=== PATIENT | female | born 1985 | race Caucasian/White ===

== ENCOUNTER 2017-12-31 14:31 | Emergency (ER) | payer BC ==
[2017-12-31] MEDS ORDERED: Sodium Chloride 0.9% 1,000 ML IV ONE (14:52)
[2017-12-31] MEDS ORDERED: Ketorolac 30 MG/ML SDV IVPUSH ONE (14:52)
[2017-12-31] MEDS ORDERED: Ondansetron 4 MG/2 ML SDV IVPUSH ONE (14:52)
[2017-12-31] MEDS ORDERED: Alum Hydrox/Mag Hydrox/Simeth 15 ML, Metoclopramide 5 MG, Lidocaine 2% 5 ML PO ONE ×3 (14:52)
--- NOTE | 2017-12-31 15:05 | EDM.PDOC ---
ED HPI GENERAL MEDICAL PROBLEM - General Chief Complaint: Abdominal Pain Stated Complaint: ABD AND BACK PAIN Time Seen by Provider: 12/31/17 14:34 Source of Information: Reports: Patient History Limitations: Reports: No Limitations - History of Present Illness INITIAL COMMENTS - FREE TEXT/NARRATIVE: HISTORY AND PHYSICAL: History of present illness: Patient is a 32-year-old who presents to the emergency room with complaints of epigastric and back pain 1 week. She reports she was seen at [facility] last week, had a "normal urine" but was treated with a three day course of antibiotics anyway. Her pain continues and has progressively increased. She returned to [facility] and was placed on multiple medications; which have not seemed to help. She does have associated nausea and vomiting. She denies any fever, chills, chest pain, shortness of breath or cough. Denies any diarrhea, constipation or dysuria. No blood noted in urine or stools. Review of systems: As per history of present illness and below otherwise all systems reviewed and negative. Past medical history: As per history of present illness and as reviewed below otherwise noncontributory. Surgical history: As per history of present illness and as reviewed below otherwise noncontributory. Social history: No reported history of drug or alcohol abuse. Family history: As per history of present illness and as reviewed below otherwise noncontributory. Physical exam: General: Well-developed and well-nourished 32-year-old female. Alert and oriented. Nontoxic appearing and in no acute distress. HEENT: Atraumatic, normocephalic, pupils equal and reactive bilaterally, negative for conjunctival pallor or scleral icterus, mucous membranes moist, throat clear, neck supple, nontender, trachea midline. No drooling or trismus noted. No meningeal signs Lungs: Clear to auscultation, breath sounds equal bilaterally, chest nontender. Heart: S1S2, regular rate and rhythm without overt murmur Abdomen: Soft, nondistended, epigastrum tender. Negative for masses or hepatosplenomegaly. Negative for costovertebral tenderness. Pelvis: Stable nontender. Genitourinary: Deferred. Rectal: Deferred. Skin: Intact, warm, dry. No lesions or rashes noted. Extremities: Atraumatic, negative for cords or calf pain. Neurovascular unremarkable. Neuro: Awake, alert, oriented. Cranial nerves II through XII unremarkable. Cerebellum unremarkable. Motor and sensory unremarkable throughout. Exam nonfocal. Notes: The location she was placed on appears like they were treating an H. pylori infection. Patient states she is unaware if that's what she was diagnosed with. [facility] was called by nursing staff to obtain medical records. According to the records that were obtained from [facility], they were treating her prophylactically for an H. pylori infection due to her complaints and a WBC of 13.2. The H. pylori is a send out lab for that facility and they did not have results back at that time. Patient has a white count of 18.3. Elevated AST/ALT. H. pylori is negative. CT of the abdomen and pelvis along with a few additonal labs are pending. Pain is 7/10. Will give morphine, she is able to get a ride if needed. 1715: CT shows severe distention of the gallbladder with moderate wall thickening and a small amount of surrounding pericholecystic fluid and edema. Findings likely correlate with acute cholecystitis. There is a moderate intra- and extrahepatic biliary ductal dilation noted. Dr Hanna was consulted on this case, she will come evaluate patient. 1735: Cyndi here to review patients CT and chart. Cyndi requests that this patient needs to be transferred. Dr Shetty and Dr Villa at [facility] were consulted on this case. Agreeable to accepting this patient. Cipro and Flagyl running. Patient is aware of all testing results. She is agreeable to transfer to [place] in [place]. Vital signs are stable. Pain is managed at this time. Denies any further questions or concerns at this time. We'll continue to monitor until EMS crew arrived. Diagnostics: CBC, CMP, UA, HCGU, Amylase, Lipase, H.Pylori Therapeutics: IV fluids, Toradol, Zofran, GI cocktail, Morphine, IV Cipro and Flagyl Impression: Acute Cholecystitis Plan: Transfer to [facility] via ground EMS Definitive disposition and diagnosis as appropriate pending reevaluation and review of above. abdomen Pain Score (Numeric/FACES): 10 - Related Data Allergies Allergy/AdvReac Type Severity Reaction Status Date / Time Penicillins Allergy Cannot Verified 12/31/17 14:40 Remember Home Meds: Home Meds Clarithromycin 500 mg PO BID 12/31/17 [History] Pantoprazole [ProTONIX] 40 mg PO BID 12/31/17 [History] Sucralfate 1 gm PO QID 12/31/17 [History] metroNIDAZOLE [Flagyl] 500 mg PO TID 12/31/17 [History] Past Medical History - Past Surgical History Female Surgical History: Reports: Section Social & Family History - Family History Family Medical History: Noncontributory - Tobacco Use Smoking Status *Q: Never Smoker - Recreational Drug Use Recreational Drug Use: No ED ROS GENERAL - Review of Systems Review Of Systems: ROS reveals no pertinent complaints other than HPI. ED EXAM, GI/ABD - Physical Exam Exam: See Below (See dictation) Course - Vital Signs Last Recorded V/S: Last Vital Signs Temp 98.9 F 12/31/17 16:58 Pulse 70 12/31/17 16:58 Resp 20 12/31/17 14:42 BP 149/90 H 12/31/17 16:58 Pulse Ox 98 12/31/17 16:58 - Orders/Labs/Meds Orders: Active Orders 24 hr Category Date Time Status Abdomen Pelvis w Cont [CT] Stat Exams 12/31/17 14:57 Taken HCG QUALITATIVE,URINE [URCHEM] Stat Lab 12/31/17 16:19 Ordered UA W/MICROSCOPIC [URIN] Stat Lab 12/31/17 16:19 Ordered Ciprofloxacin in D5W [Cipro in D5W 400 MG/200 ML] 400 Med 12/31/17 17:30 Ordered mg Premix Bag 1 bag IV Q12H metroNIDAZOLE/Normal Saline [Flagyl 500 MG in NS 100 ML Med 12/31/17 17:30 Ordered ] 500 mg Premix Bag 1 bag IV ONETIME Medication Orders Ciprofloxacin/Dextrose 400 mg/ (Premix) 200 mls @ 200 mls/hr IV Q12H TAMIA Last Admin: 12/31/17 17:45 Dose: 200 mls/hr Metronidazole 500 mg/ Premix 100 mls @ 100 mls/hr IV ONETIME ONE Stop: 12/31/17 18:29 Last Admin: 12/31/17 17:41 Dose: 100 mls/hr Labs: Laboratory Tests 12/31/17 12/31/17 12/31/17 Range/Units 14:59 14:59 14:59 WBC 18.20 H (4.0-11.0) K/uL RBC 5.17 (4.30-5.90) M/uL Hgb 15.6 (12.0-16.0) g/dL Hct 44.3 (36.0-46.0) % MCV 85.7 (80.0-98.0) fL MCH 30.2 (27.0-32.0) pg MCHC 35.2 (31.0-37.0) g/dL RDW Std Deviation 40.6 (28.0-62.0) fl RDW Coeff of Abi 13 (11.0-15.0) % Plt Count 235 (150-400) K/uL MPV 10.60 (7.40-12.00) fL Neut % (Auto) 87.6 H (48.0-80.0) % Lymph % (Auto) 4.7 L (16.0-40.0) % [place] % (Auto) 7.5 (0.0-15.0) % Eos % (Auto) 0.1 (0.0-7.0) % Baso % (Auto) 0.1 (0.0-1.5) % Neut # (Auto) 16.0 H (1.4-5.7) K/uL Lymph # (Auto) 0.9 (0.6-2.4) K/uL [place] # (Auto) 1.4 H (0.0-0.8) K/uL Eos # (Auto) 0.0 (0.0-0.7) K/uL Baso # (Auto) 0.0 (0.0-0.1) K/uL Nucleated RBC % 0.0 /100WBC Nucleated RBCs # 0 K/uL Sodium 135 L (136-145) mmol/L Potassium 3.8 (3.5-5.1) mmol/L Chloride 99 (98-107) mmol/L Carbon Dioxide 22.8 (21.0-32.0) mmol/L BUN 12 (7.0-18.0) mg/dL Creatinine 0.8 (0.6-1.0) mg/dL Est Cr Clr Drug Dosing 88.79 mL/min Estimated GFR (MDRD) > 60.0 ml/min Glucose 149 H (74-106) mg/dL Calcium 9.9 (8.5-10.1) mg/dL Total Bilirubin 2.0 H (0.2-1.0) mg/dL AST 309 H (15-37) IU/L ALT 180 H (14-63) IU/L Alkaline Phosphatase 114 (46-116) U/L Total Protein 8.1 (6.4-8.2) g/dL Albumin 4.5 (3.4-5.0) g/dL Globulin 3.6 H (2.0-3.5) g/dL Albumin/Globulin Ratio 1.3 (1.3-2.8) Amylase 29 (25-115) U/L Lipase 116 (73-393) U/L Urine Color Urine Appearance Urine pH (5.0-8.0) Ur Specific [place] (1.001-1.035) Urine Protein (NEGATIVE) mg/dL Urine Glucose (UA) (NEGATIVE) mg/dL Urine Ketones (NEGATIVE) mg/dL Urine Occult Blood (NEGATIVE) Urine Nitrite (NEGATIVE) Urine Bilirubin (NEGATIVE) Urine Ictotest Urine Urobilinogen (<2.0) EU/dL Ur Leukocyte Esterase (NEGATIVE) Urine RBC (0-2/HPF) Urine WBC (0-5/HPF) Ur Epithelial Cells (NONE-FEW) Urine Bacteria (NEGATIVE) Urine Mucus (NONE-MOD) Urine HCG, Qual (NEGATIVE) H. pylori IgG Antibody NEGATIVE (NEG) 12/31/17 12/31/17 Range/Units 16:19 16:19 WBC (4.0-11.0) K/uL RBC (4.30-5.90) M/uL Hgb (12.0-16.0) g/dL Hct (36.0-46.0) % MCV (80.0-98.0) fL MCH (27.0-32.0) pg MCHC (31.0-37.0) g/dL RDW Std Deviation (28.0-62.0) fl RDW Coeff of Abi (11.0-15.0) % Plt Count (150-400) K/uL MPV (7.40-12.00) fL Neut % (Auto) (48.0-80.0) % Lymph % (Auto) (16.0-40.0) % [place] % (Auto) (0.0-15.0) % Eos % (Auto) (0.0-7.0) % Baso % (Auto) (0.0-1.5) % Neut # (Auto) (1.4-5.7) K/uL Lymph # (Auto) (0.6-2.4) K/uL [place] # (Auto) (0.0-0.8) K/uL Eos # (Auto) (0.0-0.7) K/uL Baso # (Auto) (0.0-0.1) K/uL Nucleated RBC % /100WBC Nucleated RBCs # K/uL Sodium (136-145) mmol/L Potassium (3.5-5.1) mmol/L Chloride (98-107) mmol/L Carbon Dioxide (21.0-32.0) mmol/L BUN (7.0-18.0) mg/dL Creatinine (0.6-1.0) mg/dL Est Cr Clr Drug Dosing mL/min Estimated GFR (MDRD) ml/min Glucose (74-106) mg/dL Calcium (8.5-10.1) mg/dL Total Bilirubin (0.2-1.0) mg/dL AST (15-37) IU/L ALT (14-63) IU/L Alkaline Phosphatase (46-116) U/L Total Protein (6.4-8.2) g/dL Albumin (3.4-5.0) g/dL Globulin (2.0-3.5) g/dL Albumin/Globulin Ratio (1.3-2.8) Amylase (25-115) U/L Lipase (73-393) U/L Urine Color DARK YELLOW Urine Appearance SLT CLOUDY Urine pH 6.0 (5.0-8.0) Ur Specific [place] >= 1.030 (1.001-1.035) Urine Protein 30 (NEGATIVE) mg/dL Urine Glucose (UA) NEGATIVE (NEGATIVE) mg/dL Urine Ketones >=80 (NEGATIVE) mg/dL Urine Occult Blood SMALL H (NEGATIVE) Urine Nitrite POSITIVE H (NEGATIVE) Urine Bilirubin MODERATE H (NEGATIVE) Urine Ictotest POSITIVE Urine Urobilinogen 2.0 H (<2.0) EU/dL Ur Leukocyte Esterase NEGATIVE (NEGATIVE) Urine RBC 0-2 (0-2/HPF) Urine WBC 1-2 (0-5/HPF) Ur Epithelial Cells FEW (NONE-FEW) Urine Bacteria FEW (NEGATIVE) Urine Mucus LIGHT (NONE-MOD) Urine HCG, Qual NEGATIVE (NEGATIVE) H. pylori IgG Antibody (NEG) Meds: Medications Generic Name Dose Route Start Last Admin Trade Name Freq PRN Reason Stop Dose Admin Ciprofloxacin/Dextrose 400 mg/ 200 mls @ 200 mls/hr 12/31/17 17:30 12/31/17 17:45 Premix IV 200 mls/hr Q12H TAMIA Administration Metronidazole 500 mg/ Premix 100 mls @ 100 mls/hr 12/31/17 17:30 12/31/17 17: 41 IV 12/31/17 18:29 100 mls/hr ONETIME ONE Administration Discontinued Medications Generic Name Dose Route Start Last Admin Trade Name Freq PRN Reason Stop Dose Admin Al Hydroxide/Mg Hydroxide 15 0 ml 12/31/17 14:52 12/31/17 15:22 ml/ Metoclopramide HCl 5 mg/ PO 12/31/17 14:53 25 each Lidocaine HCl 5 ml ONETIME ONE Administration Sodium Chloride 1,000 mls @ 999 mls/hr 12/31/17 14:52 12/31/17 15:17 Normal Saline IV 12/31/17 15:52 999 mls/hr STAT ONE Administration Iopamidol 95 ml 12/31/17 16:41 12/31/17 16:52 Isovue Multipack-370 (76%) IVPUSH 12/31/17 16:42 95 ml ONETIME ONE Administration Ketorolac Tromethamine 30 mg 12/31/17 14:52 12/31/17 15:22 Toradol IVPUSH 12/31/17 14:53 30 mg ONETIME ONE Administration Morphine Sulfate 4 mg 12/31/17 16:55 12/31/17 17:20 Morphine IVPUSH 12/31/17 16:56 Not Given ONETIME ONE Morphine Sulfate 4 mg 12/31/17 17:05 12/31/17 17:14 Morphine IVPUSH 12/31/17 17:06 4 mg ONETIME ONE Administration Ondansetron HCl 4 mg 12/31/17 14:52 12/31/17 15:22 Zofran IVPUSH 12/31/17 14:53 4 mg ONETIME ONE Administration Departure - Departure Time of Disposition: 17:50 Disposition: DC/Tfer to Other 70 Clinical Impression: Acute cholecystitis - Discharge Information Referrals: PCP,None [Primary Care Provider] - Forms: ED Department Discharge - My Orders Last 24 Hours: My Active Orders 12/31/17 14:57 Abdomen Pelvis w Cont [CT] Stat 12/31/17 16:19 HCG QUALITATIVE,URINE [URCHEM] Stat UA W/MICROSCOPIC [URIN] Stat 12/31/17 17:30 Ciprofloxacin in D5W [Cipro in D5W 400 MG/200 ML] 400 mg Premix Bag 1 bag IV Q12H metroNIDAZOLE/Normal Saline [Flagyl 500 MG in NS 100 ML] 500 mg Premix Bag 1 bag IV ONETIME - Assessment/Plan Last 24 Hours: My Active Orders 12/31/17 14:57 Abdomen Pelvis w Cont [CT] Stat 12/31/17 16:19 HCG QUALITATIVE,URINE [URCHEM] Stat UA W/MICROSCOPIC [URIN] Stat 12/31/17 17:30 Ciprofloxacin in D5W [Cipro in D5W 400 MG/200 ML] 400 mg Premix Bag 1 bag IV Q12H metroNIDAZOLE/Normal Saline [Flagyl 500 MG in NS 100 ML] 500 mg Premix Bag 1 bag IV ONETIME
[2017-12-31 15:50] LABS: CHLORIDE,CL 99 mmol/L (98-107); SODIUM,NA 135 mmol/L (136-145)
[2017-12-31] MEDS ORDERED: Iopamidol 755 MG/ML 200 ML Multipack Bottle IVPUSH ONE (16:41)
[2017-12-31] MEDS ORDERED: Morphine 4 MG/ML Syringe IVPUSH ONE (16:55)
[2017-12-31] MEDS ORDERED: Morphine 2 MG/ML Syringe IVPUSH ONE ×2 (17:05→18:29)
[2017-12-31] MEDS ORDERED: metroNIDAZOLE/Normal Saline 500 MG in Premix Bag 1 BAG IV ONE (17:30)
[2017-12-31] MEDS ORDERED: Ciprofloxacin in D5W 400 MG in Premix Bag 1 BAG IV SCH ×2 (17:30)
[2017-12-31] MEDS ORDERED: Ciprofloxacin in D5W 400 MG in Premix Bag 1 BAG IV STA ×2 (17:51)
--- NOTE | 2018-01-01 08:56 | CT ---
EXAM DATE: 12/31/17 PATIENT'S AGE: 32 Patient: BEV ZURITA Facility: [place], [place] Site . Site : [id number] Study: CT Abdomen/Pelvis [id number] 5:00:42 PM Ordering Physician: Doctor Pimentel Final Report: INDICATION: Epigastric and Mid Back Pain TECHNIQUE: CT Abdomen and pelvis with i.v. contrast. Coronal and sagittal reformats were obtained. CONTRAST: 95 mL Isovue 370 COMPARISON: None FINDINGS: Lower chest: Unremarkable. Liver: Unremarkable. Spleen: Unremarkable. Pancreas: Unremarkable. Gallbladder: Severe distention of the gallbladder is present with moderate wall thickening and small amount of surrounding pericholecystic fluid and edema. Moderate intra and extrahepatic biliary ductal dilatation is noted. Kidney: Excretion of contrast into the renal collecting systems and ureters are noted, which limits evaluation for the presence of stones. Adrenal: Unremarkable. Bowel: Unremarkable. The appendix is normal in appearance and size. Vascular: Unremarkable. Lymph: Unremarkable. Peritoneum: Unremarkable. No pneumoperitoneum is seen. Small amount of ascites is present and is likely physiologic in origin. Pelvis: An IUD is present in the uterine cavity near the fundus with no identified complications. Soft tissue: Unremarkable. Bone: Unremarkable for age. IMPRESSIONS: 1. Severe distention of the gallbladder is present with moderate wall thickening and small amount of surrounding pericholecystic fluid and edema. Findings most likely due to acute cholecystitis. 2. Moderate intra and extrahepatic biliary ductal dilatation is noted. Further assessment with MRCP may be helpful. A copy of this report was faxed to Dr. Rascon at approximately 5:13 PM. Dictated by Feliciano Sinclair MD @ 12/31/2017 5:13:16 PM Please note that all CT scans at this facility use dose modulation, iterative reconstruction, and/or weight-based dosing when appropriate to reduce radiation dose to as low as reasonably achievable. Dictated by: Feliciano Sinclair MD @ 12/31/2017 17:13:26 (Electronic Signature) Report Signed by Proxy. [facility]
== END 2017-12-31 19:19 | disposition other institution (70) ==
LOC: MW.ED 14:31
DX: K81.0 Acute cholecystitis (principal)
CPT/HCPCS: 36415; 74177; 80053; 81001; 81025; 82150; 83690; 85025; 86677; 96361; 96365; 96367; 96375; 96376; 99285; A9270; J0744; J1885; J2270; J2405; J3490; J7040; Q9967